=== PATIENT | male | born 1965 | race Hispanic/Latino ===

== ENCOUNTER → 2016-11-19 | Outpatient (CLI) | payer OTHER ==
--- NOTE | 2016-11-19 09:37 | REP ---
Right hand four views : There is no fracture or dislocation. Mineralization and joint spaces are normal. There are no calcifications or foreign bodies. Impression: Negative right hand . Signed by Randall Metz MD 11/19/2016 09:29 A
--- NOTE | 2016-11-19 09:38 | REP ---
Right wrist four views : There is no fracture or dislocation. Mineralization and joint spaces are normal. There are no calcifications or foreign bodies. Impression: Negative right wrist . Signed by Randall Metz MD 11/19/2016 09:30 A
== END ==
LOC: M RAD 09:02
PROVIDERS: ATTEND Surgery
DX: R20.0 Anesthesia of skin (principal)

== ENCOUNTER → 2016-12-10 | Outpatient (CLI) | payer OTHER ==
--- NOTE | 2016-12-10 12:39 | REP ---
LEFT ANKLE, FOUR VIEWS: HISTORY: Pain. There is no acute fracture or dislocation. The joint space is normal in appearance. IMPRESSION: There is no acute fracture or dislocation. Signed by Mu Acevedo MD 12/10/2016 12:48 P
== END ==
LOC: M RAD 09:08
PROVIDERS: ATTEND Surgery
DX: M25.572 Pain in left ankle and joints of left foot (principal)

== ENCOUNTER → 2017-02-07 | Outpatient (CLI) | payer OTHER ==
--- NOTE | 2017-02-07 12:43 | REP ---
MR CERVICAL SPINE WITHOUT CONTRAST: HISTORY: Right shoulder pain. A disc bulge is present at the C5-6 level. There is minimal effacement of the thecal sac without spinal cord compression. The C5 neural foramina are patent. A disc bulge is present at the C6-7 level. There is minimal effacement of the thecal sac without spinal cord compression. The C6 neural foramina are patent. There is no other disc bulge or herniation. The remaining neural foramina are patent. The spinal cord is normal in signal intensity. Normal signal intensity is present in the cervical vertebral bodies. IMPRESSION: There is cervical spondylosis at the C5-6 and C6-7 levels without spinal cord compression. Signed by Mu Acevedo MD 02/07/2017 12:47 P
== END ==
LOC: M RAD 10:55
PROVIDERS: ATTEND Surgery
DX: M47.812 Spondylosis without myelopathy or radiculopathy, cervical region (principal)